=== PATIENT | female | born 1965 | race Hispanic/Latino ===

== ENCOUNTER 2022-01-28 11:20 | Outpatient (CLI) | payer BC | END 2022-01-28 11:21 | disposition home or self-care (01) | LOC: LABBT 11:20 | PROVIDERS: ATTEND Internal Medicine Gastroenterology | DX: Z12.11 Encounter for screening for malignant neoplasm of colon (principal); Z20.822 Contact with and (suspected) exposure to COVID-19 | CPT/HCPCS: 87811 ==

== ENCOUNTER 2022-12-11 12:38 | Outpatient (CLI) | payer BC | END 2022-12-11 12:39 | disposition home or self-care (01) | LOC: MRI 12:38 | PROVIDERS: ATTEND Family Medicine Sports Medicine | DX: M75.42 Impingement syndrome of left shoulder (principal); S43.432A Superior glenoid labrum lesion of left shoulder, initial encounter ==